=== PATIENT | male | born 1960 | race Caucasian/White ===

== ENCOUNTER → 2016-04-03 | Outpatient (CLI) | payer BC | END | disposition home or self-care (01) | LOC: CDC | DX: R94.31 Abnormal electrocardiogram [ECG] [EKG] (principal); I45.10 Unspecified right bundle-branch block; I44.4 Left anterior fascicular block; I87.311 Chronic venous hypertension (idiopathic) with ulcer of right lower extremity; I87.2 Venous insufficiency (chronic) (peripheral) | CPT/HCPCS: 93000 ==

== ENCOUNTER 2017-07-27 06:58 | Day surgery (SDC) | payer OTHER ==
[~2017-07-27] VITALS: Ht 185.4 cm; Wt 99.8 kg
[~2017-07-27 06:58] MED LIST: ASCORBIC ACID500 M3 PO; ASPIRIN325 MG PO; CIALIS5 MG PO; EXFORGE 10/11 TABLET PO; METOPROLOL; MULTIVITAMIN1 EAC2 PO; PRAVASTATIN SOD80 MG PO; VITAMIN B COMP1 EACH PO
[2017-07-27] MEDS ORDERED: PRAVACHOL20 MG PO (07:21)
[2017-07-27] MEDS ORDERED: TOPROL XL25 MG PO (07:22)
[2017-07-27] MEDS ORDERED: EXFORGE HCT 101 EAC1 PO (07:22)
== END 2017-07-27 12:25 | disposition home or self-care (01) ==
LOC: CATH 06:58 → OPR 09:00 → CATH 11:30
DX: I25.10 Atherosclerotic heart disease of native coronary artery without angina pectoris (principal); I10 Essential (primary) hypertension; E78.5 Hyperlipidemia, unspecified
CPT/HCPCS: 93005; C1769; C1887; J1644; J2250; J3010